=== PATIENT | male | born 1980 | race Caucasian/White ===

== ENCOUNTER 2018-01-09 06:01 | Inpatient (IN) ==
[2018-01-09] MEDS: 0.9 % Sodium Chloride 1,000 ML IVC ONE ×2 (06:53→08:51)
--- NOTE | 2018-01-09 06:55 | Emergency Department Note ---
Disposition Clinical Impression: Proximal limb muscle weakness, Elevated troponin, Hypokalemia Disposition: Admitted As Inpatient Condition: Fair Referrals: Janes Carpio MD [Primary Care Provider] - Forms: ED Satisfaction Letter Neuro HPI - General Chief Complaint: ED Neuro Symptoms/Deficit Stated Complaint: cant walk Time Seen by Provider: 01/09/18 06:29 Source: patient, family Mode of arrival: private vehicle Limitations: no limitations Nursing Notes Reviewed: Yes Vital Signs Reviewed: Yes - History of Present Illness Onset of Symptoms Date: 01/07/18 Symptom Onset Unknown: No Timing confirmed by: spouse Location: left arm, right arm, left leg, right leg History of same: No Severity: moderate Quality: weakness, other (soreness) Symptoms Improving: No Improves with: none Worsens with: none Context: gradual onset On Anticoagulants: No Associated symptoms: Reports: weakness. Denies: confusion, chest pain, cough, diaphoresis, fever/chills, headaches, loss of appetite, malaise, nausea/vomiting, vertigo, seizures, shortness of breath, syncope Treatments Prior to Arrival: other (patient was seen last night at [facility] urgent care. He went there because of leg weakness / pain. He mentioned that he was also having some sinus symptoms - including "green" nasal discharge, and congestion. He was diagnosed with a sinus infection. Rx: Cefdinir and Flexeril. He has had one dose of each.) - Related Data Home Medications: Home Medications Medication Instructions Recorded Confirmed ALPRAZolam [Xanax 0.5 MG Tablet] 0.5 mg PO DAILY 01/09/18 01/09/18 Cholecalciferol (Vitamin D3) 4,000 unit PO DAILY 01/09/18 01/09/18 [Vitamin D] Citalopram Hydrobromide 10 mg PO DAILY 01/09/18 01/09/18 [Citalopram HBr] Testosterone Cypionate 200 mg IM SA 01/09/18 01/09/18 Allergies/Adverse Reactions: Allergies Allergy/AdvReac Type Severity Reaction Status Date / Time tramadol AdvReac Agitated Verified 01/09/18 06:41 All systems ED: reviewed and negative except as stated. Review of Systems: As Per HPI Constitutional: Reports: as per HPI, weakness, night sweats (intermittent). Denies: fever, chills, weight change Eyes: Denies: eye pain, eye discharge, vision change ENT ED: Reports: as per HPI, congestion. Denies: ear pain, throat pain, dysphagia Cardiovascular: Denies: chest pain, palpitations, dyspnea on exertion, orthopnea, edema, syncope Respiratory: Denies: cough, dyspnea, wheezes, hemoptysis, stridor Gastrointestinal: Denies: abdominal pain, nausea, vomiting, diarrhea, constipation Genitourinary: Denies: urgency, dysuria, frequency, hematuria Musculoskeletal: Reports: as per HPI, myalgia (medial proximal thighs and upper proximal arms). Denies: back pain, neck pain, joint swelling, arthralgia Integumentary: Denies: rash, lesions, pruritus Neurological: Reports: as per HPI, weakness. Denies: headache, numbness, par esthesias, confusion, vertigo Endocrine: Reports: fatigue. Denies: heat or cold intolerance, polydipsia, polyuria Hematological/Lymphatic: Denies: easy bleeding, easy bruising, lymphadenopathy Allergic/Immunologic: Denies: facial swelling, urticaria, itchy eyes Past Medical History - Past Medical History Attestation: Yes The following information was validated with the patient. Source: patient, obtained from family Medical history: Reports: no medical history, other (sinusitis - Dx last night. Rx Cefdinir) Surgical history: Reports: non-contributory Psychiatric history: Reports: anxiety, panic disorder - Social History Smoking Status: Never smoker Smokeless Tobacco Status: No Alcohol use: Reports: none Drug use: Reports: none Physical Exam - General Limitations: physical limitation General appearance: alert, in no apparent distress, anxious - Head Head exam: atraumatic, normocephalic, normal inspection - Eye Eye exam: Present: normal appearance, PERRL, EOMI. Absent: scleral icterus, conjunctival injection, nystagmus, miosis, mydriasis, periorbital swelling, periorbital tenderness - ENT ENT exam: normal oropharynx, mucous membranes moist - Neck Neck exam: Present: normal inspection, full ROM, trachea midline. Absent: tenderness, meningismus, lymphadenopathy - Chest Chest inspection: Present: normal inspection. Absent: tenderness - Respiratory Respiratory exam: Present: normal lung sounds bilaterally. Absent: respiratory distress, wheezes, stridor, accessory muscle use, prolonged expiratory phase - Cardiovascular Cardiovascular exam: Present: regular rate, normal rhythm, normal heart sounds - Abdominal Exam Abdominal exam: Present: soft, Non-Tender. Absent: distention, guarding, rebound, rigidity, organomegaly, ascites, mass, pulsatile mass - Extremities Exam Extremities exam: Present: normal inspection, normal capillary refill. Absent: full ROM, tenderness, pedal edema, joint swelling, calf tenderness - Expanded Lower Extremity Exam Hip/Pelvis exam: Present: normal inspection, pelvis stable. Absent: full ROM, tenderness, swelling, external rotation, internal rotation, shortening Upper leg exam: Present: normal inspection. Absent: tenderness, swelling, erythema Knee exam: Present: normal inspection, knee extension intact. Absent: full ROM, tenderness, swelling, erythema Lower leg exam: Present: normal inspection, Achilles tendon intact. Absent: tenderness Ankle exam: Present: normal inspection, full ROM. Absent: tenderness, swelling, erythema Foot/toe exam: Present: normal inspection, full ROM. Absent: tenderness, swelling Neurovascular/Tendon exam: Present: normal capillary refill, normal fine/light touch. Absent: pulse deficit, motor deficit, sensory deficit, tendon deficit, extremity cold to touch, pallor, foot drop, significant pain with passive ROM of distal joint Gait: not tested/not observed - Back Exam Back exam: Present: normal inspection. Absent: tenderness, muscle spasm, pa raspinal tenderness, vertebral tenderness - Neurological Exam Neurological exam: Present: alert, oriented X3, CN II-XII intact. Absent: reflexes normal (normal DTR's left leg and left brachioradialis, decreased right arm, unable to elecit repsponse in right leg.) - Expanded Neurological Exam Patient oriented to: Present: person, place, time Speech: Present: fluid speech Cranial nerves: EOM function (II, III, IV, ): Normal, facial sensation (V): Normal, facial palsy (VII): Normal (negative), gag reflex (IX): Normal, spinal accessory function (XI): Normal, tongue deviation (XII): Normal Cerebellar function: finger to nose: Normal, heel to armas: Normal Motor strength - LUE: 3/5 Motor strength - RUE: 3/5 Motor strength - LLE: 2/5 Motor strength - RLE: 2/5 Upper motor neuron exam: lorenzo neglect: Absent bilaterally, pronator drift: Absent bilaterally, Babinski sign: Absent bilaterally, sensory extinction: Absent bilaterally Sensory exam upper extremity: light touch: Normal, pin prick: Normal, temperature: Normal Sensory exam lower extremity: light touch: Normal, pin prick: Normal, temperature: Normal DTR: bicep (L): 1+, bicep (R): 1+, brachioradialis (L): 1+, brachioradialis (R): 2+, tricep (L): 2+, tricep (R): 2+, patellar (L): 3+, patellar (R): 0, Achilles tendon (L): 1+, Achilles tendon (R): 0 Coma Scale Eye Opening: Spontaneous Coma Scale Motor Response: Obeys Commands Coma Scale Verbal Response: Oriented Coma Scale Total: 15 - Psychiatric Psychiatric exam: Present: normal affect, anxious - Skin Skin exam: Present: warm, dry, intact, normal color Course Course Narrative: Otherwise healthy 37-year-old male presents from home with his for evaluation of bilateral proximal leg weakness and pain since and bilateral proximal upper extremity weakness since this morning. He describes pain with range of motion in the medial aspect of the thighs bilaterally, and mild pain with bilateral shoulder movements / muscle use. He has had no fever, chills, nausea, vomiting, headache, dizziness, neck pain or stiffness, back pain, bowel or bladder dysfunction, saddle anesthesia, urinary retention. No trouble breathing shortness breath, dyspnea on exertion, abdominal pain, rashes. He denies recent travel. He did get a flu shot on December 29 during a routine primary care visit. He had blood work done during that visit as well and was told that everything was normal. He denies any new medications aside from those that he received at urgent care last night and the flu shot. Patient interviewed and examined. He has moderate weakness in bilateral quadriceps, hamstrings, and adductors. He has mild weakness in bilateral biceps, triceps, deltoids. No weakness in facial / occular, abdominal, back or neck muscles, no respiratory distress. DTRs are asymmetric; right lower - unable to elicit, left lower normal, bilateral upper difficult to elicit, left present, right, decreased. Labs and EKG ordered. Case discussed with Dr. Phelps. He has had face to face time with the patient and agrees with the assessment and plan. - Reevaluation(s) Reevaluation #1: Patient resting comfortably with no complaints. He seems much less anxious at this time. Time: 09:09 Reevaluation #2: Nurse reports that patient is now able to raise his legs up off of the bed >6" with minimal difficulty. This is a significant improvement. Time: 11:25 - Consultations Consultation #1: Case was discussed with Dr. Schmidt, the hospitalist. She has accepted the patient for admission. Time: 10:30 Vital Signs Temperature 98.1 F 01/09/18 06:04 Pulse Rate 91 01/09/18 06:04 Respiratory Rate 20 01/09/18 06:04 Blood Pressure 152/94 01/09/18 06:04 O2 Sat by Pulse Oximetry 100 01/09/18 06:04 Temperature 98.1 F 01/09/18 06:04 Pulse Rate 74 01/09/18 09:33 Respiratory Rate 18 01/09/18 09:33 Blood Pressure 149/93 01/09/18 09:33 O2 Sat by Pulse Oximetry 98 01/09/18 09:33 Oxygen Delivery Oxygen Delivery Room Air Neuro Symptoms/Deficit - MDM Narrative Medical decision making narrative: Otherwise healthy patient with proximal muscle weakness in setting of recent flu shot, upper respiratory infection and recent 48-hour assignment at work that involved significant sleep deprivation and lack of hydration / nutrition, presents from home with . Weakness and pain in proximal medial and anterior thighs since AM. Weakness and pain in proximal shoulders / upper arms since this AM. Leg weakness much worse this AM. Patient "unable to walk normally". No fever or respiratory difficulties. No back or neck pain or injury. No chest pain, dizziness, vertigo, syncope. Initial concern was for spinal compression, epidural abscess, cauda equina syndrome however patient has no Hx of IVDA, recent LP, procedure or injection. No urinary complaints and most importantly, no back pain. Concerned for GBS, but patient has no diaphragm involvement despite upper extremity weakness and he has normal LLE reflexes, so it would be unlikely. Myositis is in the differential as well. Labs pending. Patient has very low K+, mild elevation of troponin, normal CK, normal urine, BU N/CR, Mg, and negative drug screen. Phos and calcium pending. EKG shows some non-specific ST changes. No ST elevation. Patient receiving IV fluids and potassium. Will flag for admission. He will need a neuro consult and troponin repeat as well as continued K replacement, additional testing and observation. Case discussed with the hospitalist. She has accepted the patient. - Medical Records Medical records reviewed: Yes I reviewed the patient's medical records. - Lab Data Lab results reviewed: Yes I reviewed the patient's lab results. Lab results narrative: Laboratory Last Values WBC 7.4 K/mcL (4.3-11.1) 01/09/18 06:56 RBC 5.65 M/mcL (4.19-5.50) H 01/09/18 06:56 Hgb 17.6 g/dL (12.9-16.9) H 01/09/18 06:56 Hct 48.8 % (37.5-50.1) 01/09/18 06:56 MCV 86.4 fL (83.0-100.0) 01/09/18 06:56 MCH 31.2 pg (28.0-33.3) 01/09/18 06:56 MCHC 36.1 g/dL (31.6-35.5) H 01/09/18 06:56 RDW 12.1 % (11.5-14.5) 01/09/18 06:56 Plt Count 280 K/mcL (140-400) 01/09/18 06:56 MPV 9.7 fL (9.4-12.4) 01/09/18 06:56 ESR 20 mm/hr (0-10) H 01/09/18 06:56 Sodium 138 mEq/L (136-145) 01/09/18 06:56 Potassium 2.4 mEq/L (3.5-5.1) L* 01/09/18 06:56 Chloride 105 mEq/L (98-107) 01/09/18 06:56 Carbon Dioxide 24 mEq/L (23-29) 01/09/18 06:56 BUN 9 mg/dL (6-20) 01/09/18 06:56 Creatinine 0.81 mg/dL (0.70-1.30) 01/09/18 06:56 Est GFR ( Amer) > 60 (> 60) 01/09/18 06:56 Est GFR (Non-Af Amer) > 60 (> 60) 01/09/18 06:56 BUN/Creatinine Ratio 11 (6-26) 01/09/18 06:56 Glucose 129 mg/dL (70-105) H 01/09/18 06:56 Calculated Osmolality 286 (280-300) 01/09/18 06:56 Calcium 10.0 mg/dL (8.6-10.3) 01/09/18 06:56 Magnesium 2.0 mg/dL (1.6-2.6) 01/09/18 06:56 Total Bilirubin 0.6 mg/dL (0.3-1.0) 01/09/18 06:56 AST 15 Units/L (13-39) 01/09/18 06:56 ALT 18 Units/L (7-52) 01/09/18 06:56 Alkaline Phosphatase 66 Units/L (34-104) 01/09/18 06:56 Creatine Kinase 89 Units/L (30-223) 01/09/18 06:56 Troponin I 0.06 ng/mL (< 0.04) H* 01/09/18 06:56 Serum Total Protein 7.4 g/dL (6.4-8.9) 01/09/18 06:56 Albumin 4.5 g/dL (3.5-5.7) 01/09/18 06:56 Globulin 2.9 g/dL (2.4-3.5) 01/09/18 06:56 Albumin/Globulin Ratio 1.6 (1.1-2.2) 01/09/18 06:56 Urine Color Yellow (Yellow) 01/09/18 08:10 Urine Clarity Clear (Clear) 01/09/18 08:10 Urine pH 7.0 pH Units (5.0-8.0) 01/09/18 08:10 Ur Specific [place] < 1.005 (1.010-1.025) L 01/09/18 08:10 Urine Protein Negative mg/dL (Neg-Trace) 01/09/18 08:10 Urine Glucose (UA) Normal mg/dL (Normal) 01/09/18 08:10 Urine Ketones Negative mg/dL (Negative) 01/09/18 08:10 Urine Blood Negative (Negative) 01/09/18 08:10 Urine Nitrite Negative (Negative) 01/09/18 08:10 Urine Bilirubin Negative (Negative) 01/09/18 08:10 Urine Urobilinogen Normal mg/dL (Normal) 01/09/18 08:10 Ur Leukocyte Esterase Negative (Negative) 01/09/18 08:10 Ur Culture Indicated? NO (NO) 01/09/18 08:10 Urine Opiates Screen Negative ng/mL (Dhmuky=207) 01/09/18 08:10 Ur Barbiturates Screen Negative ng/mL (Btunho=822) 01/09/18 08:10 Ur Phencyclidine Scrn Negative ng/mL (Cutoff=25) 01/09/18 08:10 Ur Amphetamines Screen Negative ng/mL (Nosdtm=1529) 01/09/18 08:10 U Benzodiazepines Scrn Negative ng/mL (Auyimh=850) 01/09/18 08:10 Urine Cocaine Screen Negative ng/mL (Cutoff= 300) 01/09/18 08:10 U Marijuana (THC) Screen Negative ng/mL (Cutoff = 50) 01/09/18 08:10 Ur Drug Screen Interp See Below 01/09/18 08:10 Result diagrams: 01/09/18 06:56 01/09/18 06:56 Lab Results 01/09/18 01/09/18 01/09/18 Range/Units 06:56 06:56 06:56 WBC 7.4 (4.3-11.1) K/mcL RBC 5.65 H (4.19-5.50) M/mcL Hgb 17.6 H (12.9-16.9) g/dL Hct 48.8 (37.5-50.1) % MCV 86.4 (83.0-100.0) fL MCH 31.2 (28.0-33.3) pg MCHC 36.1 H (31.6-35.5) g/dL RDW 12.1 (11.5-14.5) % Plt Count 280 (140-400) K/mcL MPV 9.7 (9.4-12.4) fL ESR 20 H (0-10) mm/hr Sodium 138 (136-145) mEq/L Potassium 2.4 L* (3.5-5.1) mEq/L Chloride 105 (98-107) mEq/L Carbon Dioxide 24 (23-29) mEq/L BUN 9 (6-20) mg/dL Creatinine 0.81 (0.70-1.30) mg/dL Est GFR ( Amer) > 60 (> 60) Est GFR (Non-Af Amer) > 60 (> 60) BUN/Creatinine Ratio 11 (6-26) Glucose 129 H (70-105) mg/dL Calculated Osmolality 286 (280-300) Calcium 10.0 (8.6-10.3) mg/dL Total Bilirubin 0.6 (0.3-1.0) mg/dL AST 15 (13-39) Units/L ALT 18 (7-52) Units/L Alkaline Phosphatase 66 (34-104) Units/L Creatine Kinase 89 (30-223) Units/L Troponin I 0.06 H* (< 0.04) ng/mL Serum Total Protein 7.4 (6.4-8.9) g/dL Albumin 4.5 (3.5-5.7) g/dL Globulin 2.9 (2.4-3.5) g/dL Albumin/Globulin Ratio 1.6 (1.1-2.2) Urine Color (Yellow) Urine Clarity (Clear) Urine pH (5.0-8.0) pH Units Ur Specific [place] (1.010-1.025) Urine Protein (Neg-Trace) mg/dL Urine Glucose (UA) (Normal) mg/dL Urine Ketones (Negative) mg/dL Urine Blood (Negative) Urine Nitrite (Negative) Urine Bilirubin (Negative) Urine Urobilinogen (Normal) mg/dL Ur Leukocyte Esterase (Negative) Ur Culture Indicated? (NO) Urine Opiates Screen (Ihkbto=066) ng/mL Ur Barbiturates Screen (Syocfh=174) ng/mL Ur Phencyclidine Scrn (Cutoff=25) ng/mL Ur Amphetamines Screen (Wkxjco=3664) ng/mL U Benzodiazepines Scrn (Hqyspo=932) ng/mL Urine Cocaine Screen (Cutoff= 300) ng/mL U Marijuana (THC) Screen (Cutoff = 50) ng/mL Ur Drug Screen Interp 01/09/18 01/09/18 Range/Units 08:10 08:10 WBC (4.3-11.1) K/mcL RBC (4.19-5.50) M/mcL Hgb (12.9-16.9) g/dL Hct (37.5-50.1) % MCV (83.0-100.0) fL MCH (28.0-33.3) pg MCHC (31.6-35.5) g/dL RDW (11.5-14.5) % Plt Count (140-400) K/mcL MPV (9.4-12.4) fL ESR (0-10) mm/hr Sodium (136-145) mEq/L Potassium (3.5-5.1) mEq/L Chloride (98-107) mEq/L Carbon Dioxide (23-29) mEq/L BUN (6-20) mg/dL Creatinine (0.70-1.30) mg/dL Est GFR ( Amer) (> 60) Est GFR (Non-Af Amer) (> 60) BUN/Creatinine Ratio (6-26) Glucose (70-105) mg/dL Calculated Osmolality (280-300) Calcium (8.6-10.3) mg/dL Total Bilirubin (0.3-1.0) mg/dL AST (13-39) Units/L ALT (7-52) Units/L Alkaline Phosphatase (34-104) Units/L Creatine Kinase (30-223) Units/L Troponin I (< 0.04) ng/mL Serum Total Protein (6.4-8.9) g/dL Albumin (3.5-5.7) g/dL Globulin (2.4-3.5) g/dL Albumin/Globulin Ratio (1.1-2.2) Urine Color Yellow (Yellow) Urine Clarity Clear (Clear) Urine pH 7.0 (5.0-8.0) pH Units Ur Specific [place] < 1.005 L (1.010-1.025) Urine Protein Negative (Neg-Trace) mg/dL Urine Glucose (UA) Normal (Normal) mg/dL Urine Ketones Negative (Negative) mg/dL Urine Blood Negative (Negative) Urine Nitrite Negative (Negative) Urine Bilirubin Negative (Negative) Urine Urobilinogen Normal (Normal) mg/dL Ur Leukocyte Esterase Negative (Negative) Ur Culture Indicated? NO (NO) Urine Opiates Screen Negative (Rbomsb=419) ng/mL Ur Barbiturates Screen Negative (Nmabwt=367) ng/mL Ur Phencyclidine Scrn Negative (Cutoff=25) ng/mL Ur Amphetamines Screen Negative (Dthrvv=0280) ng/mL U Benzodiazepines Scrn Negative (Elxnmw=381) ng/mL Urine Cocaine Screen Negative (Cutoff= 300) ng/mL U Marijuana (THC) Screen Negative (Cutoff = 50) ng/mL Ur Drug Screen Interp See Below - Radiology Data Radiology results reviewed: Yes I reviewed the patient's radiology results. - EKG Data EKG attestation: Yes I reviewed and interpreted this EKG. EKG shows normal: sinus rhythm Rate: normal Rhythm: NSR [place]/QRS: IVCD P Waves: LAE When compared to previous EKG there are: previous EKG unavailable Interpretation: normal EKG TPA Checklist - LKW: 3-4.5 hrs Add. Warnings/Precautions Patient/family understanding: The patient/family members have been counseled and understood the risk, benefit, and alternatives of treatment.
--- NOTE | 2018-01-09 06:55 | Emergency Department Note ---
Disposition Clinical Impression: Proximal limb muscle weakness, Elevated troponin, Hypokalemia Disposition: Admitted As Inpatient Condition: Fair General Adult HPI - General Chief complaint: ED Neuro Symptoms/Deficit Stated complaint: cant walk Time Seen by Provider: 01/09/18 06:29 Source: patient, family Limitations: physical limitation - History of Present Illness Pain Scale: 0 - Related Data Home Medications Medication Instructions Recorded Confirmed ALPRAZolam [Xanax 0.5 MG Tablet] 0.5 mg PO DAILY 01/09/18 01/09/18 Cholecalciferol (Vitamin D3) 4,000 unit PO DAILY 01/09/18 01/09/18 [Vitamin D] Citalopram Hydrobromide 10 mg PO DAILY 01/09/18 01/09/18 [Citalopram HBr] Testosterone Cypionate 200 mg IM SA 01/09/18 01/09/18 Allergies Allergy/AdvReac Type Severity Reaction Status Date / Time tramadol AdvReac Agitated Verified 01/09/18 06:41 Past Medical History - Past Medical History Medical history: Reports: no medical history Psychiatric history: Reports: anxiety, panic disorder - Social History Smoking Status: Never smoker Smokeless Tobacco Status: No Alcohol use: Reports: none Drug use: Reports: none Physical Exam - General Limitations: physical limitation General appearance: alert Course Vital Signs Temperature 98.1 F 01/09/18 06:04 Pulse Rate 91 01/09/18 06:04 Respiratory Rate 20 01/09/18 06:04 Blood Pressure 152/94 01/09/18 06:04 O2 Sat by Pulse Oximetry 100 01/09/18 06:04 Temperature 98.1 F 01/09/18 06:04 Pulse Rate 85 01/09/18 10:51 Respiratory Rate 18 01/09/18 10:51 Blood Pressure 175/101 01/09/18 10:51 O2 Sat by Pulse Oximetry 98 01/09/18 10:51 Oxygen Delivery Oxygen Delivery Room Air Medical Decision Making - Lab Data Result diagrams: 01/09/18 06:56 01/09/18 06:56 Lab Results 01/09/18 01/09/18 01/09/18 Range/Units 06:56 06:56 06:56 WBC 7.4 (4.3-11.1) K/mcL RBC 5.65 H (4.19-5.50) M/mcL Hgb 17.6 H (12.9-16.9) g/dL Hct 48.8 (37.5-50.1) % MCV 86.4 (83.0-100.0) fL MCH 31.2 (28.0-33.3) pg MCHC 36.1 H (31.6-35.5) g/dL RDW 12.1 (11.5-14.5) % Plt Count 280 (140-400) K/mcL MPV 9.7 (9.4-12.4) fL ESR 20 H (0-10) mm/hr Sodium 138 (136-145) mEq/L Potassium 2.4 L* (3.5-5.1) mEq/L Chloride 105 (98-107) mEq/L Carbon Dioxide 24 (23-29) mEq/L BUN 9 (6-20) mg/dL Creatinine 0.81 (0.70-1.30) mg/dL Est GFR ( Amer) > 60 (> 60) Est GFR (Non-Af Amer) > 60 (> 60) BUN/Creatinine Ratio 11 (6-26) Glucose 129 H (70-105) mg/dL Calculated Osmolality 286 (280-300) Calcium 10.0 (8.6-10.3) mg/dL Magnesium 2.0 (1.6-2.6) mg/dL Total Bilirubin 0.6 (0.3-1.0) mg/dL AST 15 (13-39) Units/L ALT 18 (7-52) Units/L Alkaline Phosphatase 66 (34-104) Units/L Creatine Kinase 89 (30-223) Units/L Troponin I 0.06 H* (< 0.04) ng/mL Serum Total Protein 7.4 (6.4-8.9) g/dL Albumin 4.5 (3.5-5.7) g/dL Globulin 2.9 (2.4-3.5) g/dL Albumin/Globulin Ratio 1.6 (1.1-2.2) Urine Color (Yellow) Urine Clarity (Clear) Urine pH (5.0-8.0) pH Units Ur Specific Brock (1.010-1.025) Urine Protein (Neg-Trace) mg/dL Urine Glucose (UA) (Normal) mg/dL Urine Ketones (Negative) mg/dL Urine Blood (Negative) Urine Nitrite (Negative) Urine Bilirubin (Negative) Urine Urobilinogen (Normal) mg/dL Ur Leukocyte Esterase (Negative) Ur Culture Indicated? (NO) Urine Opiates Screen (Pwmlqx=014) ng/mL Ur Barbiturates Screen (Hzwrhv=349) ng/mL Ur Phencyclidine Scrn (Cutoff=25) ng/mL Ur Amphetamines Screen (Pnflkg=9495) ng/mL U Benzodiazepines Scrn (Ehojgd=137) ng/mL Urine Cocaine Screen (Cutoff= 300) ng/mL U Marijuana (THC) Screen (Cutoff = 50) ng/mL Ur Drug Screen Interp 01/09/18 01/09/18 Range/Units 08:10 08:10 WBC (4.3-11.1) K/mcL RBC (4.19-5.50) M/mcL Hgb (12.9-16.9) g/dL Hct (37.5-50.1) % MCV (83.0-100.0) fL MCH (28.0-33.3) pg MCHC (31.6-35.5) g/dL RDW (11.5-14.5) % Plt Count (140-400) K/mcL MPV (9.4-12.4) fL ESR (0-10) mm/hr Sodium (136-145) mEq/L Potassium (3.5-5.1) mEq/L Chloride (98-107) mEq/L Carbon Dioxide (23-29) mEq/L BUN (6-20) mg/dL Creatinine (0.70-1.30) mg/dL Est GFR ( Amer) (> 60) Est GFR (Non-Af Amer) (> 60) BUN/Creatinine Ratio (6-26) Glucose (70-105) mg/dL Calculated Osmolality (280-300) Calcium (8.6-10.3) mg/dL Magnesium (1.6-2.6) mg/dL Total Bilirubin (0.3-1.0) mg/dL AST (13-39) Units/L ALT (7-52) Units/L Alkaline Phosphatase (34-104) Units/L Creatine Kinase (30-223) Units/L Troponin I (< 0.04) ng/mL Serum Total Protein (6.4-8.9) g/dL Albumin (3.5-5.7) g/dL Globulin (2.4-3.5) g/dL Albumin/Globulin Ratio (1.1-2.2) Urine Color Yellow (Yellow) Urine Clarity Clear (Clear) Urine pH 7.0 (5.0-8.0) pH Units Ur Specific Brock < 1.005 L (1.010-1.025) Urine Protein Negative (Neg-Trace) mg/dL Urine Glucose (UA) Normal (Normal) mg/dL Urine Ketones Negative (Negative) mg/dL Urine Blood Negative (Negative) Urine Nitrite Negative (Negative) Urine Bilirubin Negative (Negative) Urine Urobilinogen Normal (Normal) mg/dL Ur Leukocyte Esterase Negative (Negative) Ur Culture Indicated? NO (NO) Urine Opiates Screen Negative (Wmtusl=462) ng/mL Ur Barbiturates Screen Negative (Nkxbel=125) ng/mL Ur Phencyclidine Scrn Negative (Cutoff=25) ng/mL Ur Amphetamines Screen Negative (Zmwwzf=3868) ng/mL U Benzodiazepines Scrn Negative (Cwhqnj=272) ng/mL Urine Cocaine Screen Negative (Cutoff= 300) ng/mL U Marijuana (THC) Screen Negative (Cutoff = 50) ng/mL Ur Drug Screen Interp See Below Critical Care Time Critical Care Time: Yes Total Critical Care Time: 30 Attestation: The high probability of a clinically significant, sudden or life threatening deterioration of the [] system(s) required my full and direct attention, intervention and personal management. The aggregate critical care time was [] minutes. This time is in addition to time spent performing reported procedures but includes the following: [] Data Review and interpretation [] Patient assessment and monitoring of vital signs [] Documentation [] Medication orders and management Attestation Statement - Attestation Attestation: For this encounter, I have reviewed the SHANK FAKER or PA documentation, treatment plan, and medical decision making; and I have had face to face time with this patient. Face to face time provided Patient seen and evaluated. He states he developed a traumatic pain to his bilateral medial thighs which is now causing bilateral lower extremity leg weakness and pain with flexion at the hips. He also describes upper extremity weakness. He denies numbness tingling or bowel or bladder dysfunction. 11:28: Etiology of patient's symptoms and completely certain but could be related to his hypokalemia which will be supplemented. A diagnostic consideration also includes Guillain-[place] although his symptoms are not completely consistent with that. The patient may require a neurology consultation upon admission
[2018-01-09 07:33] LABS: Hematocrit 48.8 % (37.5-50.1); Hemoglobin 17.6 g/dL (12.9-16.9); Mean Corpuscular HGB Conc 36.1 g/dL (31.6-35.5); Mean Corpuscular Hemoglobin 31.2 pg (28.0-33.3); Mean Corpuscular Volume 86.4 fL (83.0-100.0); Mean Platelet Volume 9.7 fL (9.4-12.4); Platelet Count 280 K/mcL (140-400); Red Blood Count 5.65 M/mcL (4.19-5.50); Red Cell Distribution Width 12.1 % (11.5-14.5)
[2018-01-09 07:56] LABS: Troponin I 0.06 ng/mL (< 0.04)
[2018-01-09 08:05] LABS: Alanine Aminotransferase 18 Units/L (7-52); Albumin 4.5 g/dL (3.5-5.7); Albumin/Globulin Ratio 1.6 (1.1-2.2); Alkaline Phosphatase 66 Units/L (34-104); Aspartate Amino Transferase 15 Units/L (13-39); BUN/Creatinine Ratio 11 (6-26); Bilirubin,Total 0.6 mg/dL (0.3-1.0); Blood Urea Nitrogen 9 mg/dL (6-20); Carbon Dioxide 24 mEq/L (23-29); Chloride 105 mEq/L (98-107); Creatine Kinase 89 Units/L (30-223); Globulin 2.9 g/dL (2.4-3.5); Glucose 129 mg/dL (70-105); Osmolality,Calculated 286 (280-300); Potassium 2.4 mEq/L (3.5-5.1); Sodium 138 mEq/L (136-145); Total Protein 7.4 g/dL (6.4-8.9); eGFR For Non-African Americans > 60 (> 60)
[2018-01-09 08:23] LABS: Bilirubin,Urine Negative (Negative); Blood,Urine Negative (Negative); Clarity,Urine Clear (Clear); Color,Urine Yellow (Yellow); Glucose,Urine (UA) Normal (Normal); Ketones,Urine Negative (Negative); Leukocyte Esterase,Urine Negative (Negative); Nitrite,Urine Negative (Negative); Protein,Urine Negative (Neg-Trace); Specific Gravity,Urine < 1.005 (1.010-1.025); Urobilinogen,Urine Normal (Normal)
[2018-01-09 08:25] LABS: Amphetamine Screen,Urine Negative ng/mL (Cutoff=1000); Barbiturate Screen,Urine Negative ng/mL (Cutoff=200)
[2018-01-09 08:26] LABS: Benzodiazepines Screen,Urine Negative ng/mL (Cutoff=300); Cannabinoid Screen,Urine Negative ng/mL (Cutoff = 50); Cocaine Screen,Urine Negative ng/mL (Cutoff= 300); Opiate Screen,Urine Negative ng/mL (Cutoff=300); Phencyclidine Screen,Urine Negative ng/mL (Cutoff=25)
[2018-01-09] MEDS ORDERED: 0.9 % Sodium Chloride 1,000 ML ONE ×2 (08:42→09:57)
[2018-01-09] MEDS ORDERED: Naloxone 0.4 MG/ML INJ IVP PRN (10:20)
[2018-01-09] MEDS ORDERED: Aspirin 325 MG TABLET PO ONE (10:26)
[2018-01-09] MEDS ORDERED: 0.9 % Sodium Chloride 1,000 ML IVC ONE (10:32)
--- NOTE | 2018-01-09 10:46 | Internal Med History&Physical ---
Date of Encounter: 01/09/18 Time of Encounter: 12:13 Internal Medicine - H&P: HPI Chief complaint: Muscle weakness Admitted From: Home Plans for Post Hospital Care: Home History of present illness: Mr. Porras is a 37 year old male with no medical history who presented to the ER with a 2 days history of generalized muscle weakness and fatigue. The patient reports having seen his primary care physician and recently started on testosterone shots, as well as receiving his flu and hepatitis A and B vaccine. He denies nausea or vomiting, he denies diarrhea, he denies sudden onset palpitations or headaches, he denies having anxiety or panic attacks, he denies known history of hypertension. He denies chest pain or shortness of breath, he denies leg swelling, cough tenderness, abdominal pain, difficulty breathing. Presented to an urgent care facility yesterday 01/08 and was diagnosed with sinus infection and given antibiotics. However, he woke up this morning and was unable to move, he felt as if he was paralyzed this is presentation to this facility. He denies any family history of endocrine abnormalities or cardiac abnormalities. 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 He is a nonsmoker. Workup in the ER revealed polycythemia, hypokalemia, hyperglycemia, potassium of 2.4 with normal magnesium, 7 is within normal limit, troponin was elevated at 0.06, liver function tests was unremarkable, troponin was elevated at 0.06, ESR was elevated at 20, creatinine kinase was within normal limit. Urine analysis showed dilute urine, and urine toxicology was unremarkable His most recent blood work from his primary care physician on 12/29 showed a normal potassium of 3.9. EKG was unremarkable for any ST segment changes, sinus rhythm and normal intervals. He will be placed on observation for management and work up of severe hypokalemia Past Med Surg Social Fam HX - Past Medical History Medical history: no medical history, other (sinusitis - Dx last night. Rx Cefdinir) Additional medical history: low testosterone Psychiatric history: anxiety, panic disorder - Past Surgical History Surgical History: non-contributory - Social History Smoking Status: Never smoker Smokeless Tobacco Status: No Alcohol use: none Drug use: none Internal Medicine - H&P: Meds ALPRAZolam [Xanax 0.5 MG Tablet] 0.5 mg PO DAILY 01/09/18 [History] Cholecalciferol (Vitamin D3) [Vitamin D] 4,000 unit PO DAILY 01/09/18 [History] Citalopram Hydrobromide [Citalopram HBr] 10 mg PO DAILY 01/09/18 [History] Testosterone Cypionate 200 mg IM SA 01/09/18 [History] Allergy/AdvReac Type Severity Reaction Status Date / Time tramadol AdvReac Agitated Verified 01/09/18 06:41 All Systems PM: A 10-system review of systems was performed and is negative for pertinent findings except as documented above in the HPI. - Constitutional Constitutional: as per HPI - EENT Eyes: as per HPI Ears: as per HPI Nose, mouth and throat: as per HPI - Cardiovascular Cardiovascular ROS IM: as per HPI - Respiratory Respiratory: as per HPI - Gastrointestinal Gastrointestinal: as per HPI - Musculoskeletal Musculoskeletal ROS IM: as per HPI - Integumentary Integumentary IM: as per HPI - Neurological Neurological ROS: as per HPI - Hematologic/Lymphatic Hematologic/Lymphatic: as per HPI - Constitutional Vitals: Temp Pulse Resp BP Pulse Ox 98.1 F 74 18 149/93 98 01/09/18 06:04 01/09/18 09:33 01/09/18 09:33 01/09/18 09:33 01/09/18 09:33 General appearance: Present: A&O X 3, pleasant, no acute distress Exam: see below - Head Head exam: Present: atraumatic, normocephalic - Eye Eye exam: Present: PERRL, conjuntiva pink, sclera anicteric Pupils: Present: PERRL - Neck Neck exam general surgery: Present: supple, trachea midline. Absent: lymphadenopathy - Respiratory Respiratory exam: Present: CTAB. Absent: accessory muscle use, rales, rhonchi, wheezes - Cardiovascular Cardiovascular exam: Present: RRR, +S1, +S2. Absent: diastolic murmur, gallop, rubs, systolic murmur - GI/Abdominal GI/Abdominal exam: Present: normal bowel sounds, soft, no peritoneal signs. Absent: distended, tenderness - Extremities Exam Extremities exam: Present: warm, radial pulses palpable and symmetrical. Absent: calf tenderness, cyanotic, pedal edema - Neurological Exam Neurological exam: Present: CN II-XII intact, oriented X3, no focal deficits. Absent: pronater drift, facial droop, speech deficit - Skin Skin exam: Present: dry, intact Internal Med - H&P Results - Labs CBC & Chem 7: 01/09/18 06:56 01/09/18 06:56 Labs: Short CBC 01/09/18 Range/Units 06:56 WBC 7.4 (4.3-11.1) K/mcL Hgb 17.6 H (12.9-16.9) g/dL Hct 48.8 (37.5-50.1) % Plt Count 280 (140-400) K/mcL BMP 01/09/18 06:56 Sodium 138 Potassium 2.4 L* Chloride 105 Carbon Dioxide 24 BUN 9 Creatinine 0.81 Glucose 129 H Calcium 10.0 Cardiac Enzymes 01/09/18 Range/Units 06:56 Troponin I 0.06 H* (< 0.04) ng/mL Liver Function 01/09/18 Range/Units 06:56 Total Bilirubin 0.6 (0.3-1.0) mg/dL AST 15 (13-39) Units/L ALT 18 (7-52) Units/L Alkaline Phosphatase 66 (34-104) Units/L Albumin 4.5 (3.5-5.7) g/dL Urine 01/09/18 Range/Units 08:10 Urine Color Yellow (Yellow) Urine Clarity Clear (Clear) Urine pH 7.0 (5.0-8.0) pH Units Ur Specific [place] < 1.005 L (1.010-1.025) Urine Protein Negative (Neg-Trace) mg/dL Urine Glucose (UA) Normal (Normal) mg/dL - Assessment and plan (1) Hypokalemia Current Visit: Yes Status: Acute Assessment and plan: Patient presented with sudden muscle weakness, started 2 days ago, K 2.9 on presentation, was 3.9 12/29/17 with PCP He denies diuretic use, no vomiting or diarrhea, no licorice ingestion, no palpitations, headaches, anxiety, sudden sweating or flushing Patient recently started taking testosterone injections, he denies any other anabolic steroid use Chart review also shows elevated blood pressures he has no metabolic acidosis or alkalosis He has received 80 meq from ER-40meq IV and 40meq po Rpt K p.m today Monitor Chem Obtain spot urine potassium and spot urine creatinine Obtain a.m renin activity and aldosterone levels Etiology of hypokalemia is unknown at this time Keep on telemetry (2) Proximal limb muscle weakness Current Visit: Yes Status: Acute Assessment and plan: Likely due to hypokalemia Patient has shown remarkable improvement since receiving potassium replacements Continue to monitor (3) Elevated troponin Current Visit: Yes Status: Acute Assessment and plan: Likely due to hypokalemia CK is WNL Cycle trops Follow ECHO report Patient has no chest pain and EKG is unremarkable (4) Polycythemia Current Visit: Yes Status: Acute Assessment and plan: likely due to testosterone, continue to monitor (5) Elevated blood pressure reading Current Visit: Yes Status: Acute Assessment and plan: Not a known hypertensive, continue to monitor (6) Hypophosphatemia Current Visit: Yes Status: Acute Assessment and plan: Critical Phos level <1 Replace IV and PO Rpt with pm chem - Time Spent With Patient Total time spent is greater than 50% in coordination of care (as documented) at patient's floor/unit and/or counseling patient:
[2018-01-09 12:17] LABS: C-Reactive Protein 14 mg/L (Less than 10); Phosphorous < 1.0 mg/dL (2.7-4.5)
[2018-01-09] MEDS: Cholecalciferol (D-3) 1,000 UNIT TABLET PO SCH (13:20)
[2018-01-09] MEDS: ALPRAZolam 0.5 MG TABLET PO SCH (13:21)
[2018-01-09 16:14] LABS: Chloride,Urine 25 mEq/L; Creatinine,Urine 40 mg/dL; Potassium,Urine 5.1 mEq/L
[2018-01-10 00:49] LABS: BUN/Creatinine Ratio 8 (6-26); Blood Urea Nitrogen 6 mg/dL (6-20); Calcium 8.6 mg/dL (8.6-10.3); Carbon Dioxide 25 mEq/L (23-29); Chloride 110 mEq/L (98-107); Glucose 163 mg/dL (70-105); Osmolality,Calculated 295 (280-300); Sodium 142 mEq/L (136-145); eGFR For Non-African Americans > 60 (> 60)
[2018-01-10] MEDS ORDERED: *HR* Enoxaparin 40 MG/0.4 ML SYRINGE SQ SCH (06:00)
[2018-01-10 07:49] VITALS: BP 145/81
--- NOTE | 2018-01-10 07:54 | Internal Med Progress Note ---
Hospitalist Progress Note - Encounter Date of Encounter: 01/10/18 Time of Encounter: 07:53 - Exam Vitals: Temp Pulse Resp BP Pulse Ox 97.8 F 73 17 145/81 96 01/10/18 07:44 01/10/18 07:44 01/10/18 07:44 01/10/18 07:44 01/10/18 07:44 - Time Spent with Patient Total time spent is greater than 50% in coordination of care (as documented) at patient's floor/unit and/or counseling patient: Internal Medicine: Result - Labs CBC & Chem 7: 01/09/18 06:56 01/10/18 00:17 Labs: BMP 01/09/18 01/09/18 01/10/18 06:56 18:18 00:17 Sodium 138 142 Potassium 2.4 L* 3.7 D 3.0 L Chloride 105 110 H Carbon Dioxide 24 25 BUN 9 6 Creatinine 0.81 0.77 Glucose 129 H 163 H Calcium 10.0 8.6 Cardiac Enzymes 01/09/18 01/09/18 01/09/18 Range/Units 06:56 12:43 18:19 Troponin I 0.06 H* 0.07 H* 0.05 H* (< 0.04) ng/mL 01/10/18 Range/Units 00:17 Troponin I 0.04 H* (< 0.04) ng/mL Liver Function 01/09/18 Range/Units 06:56 Total Bilirubin 0.6 (0.3-1.0) mg/dL AST 15 (13-39) Units/L ALT 18 (7-52) Units/L Alkaline Phosphatase 66 (34-104) Units/L Albumin 4.5 (3.5-5.7) g/dL Urine 01/09/18 Range/Units 08:10 Urine Color Yellow (Yellow) Urine Clarity Clear (Clear) Urine pH 7.0 (5.0-8.0) pH Units Ur Specific [place] < 1.005 L (1.010-1.025) Urine Protein Negative (Neg-Trace) mg/dL Urine Glucose (UA) Normal (Normal) mg/dL - Impressions Impressions Echocardiogram 01/09/18 10:43 Impressions: Findings: ADDENDUM: 01/09/18 1617 Impressions: LVEF 65%. Normal LV chamber size, wall thickness and function. Normal right ventricular structure and function. No significant valvular dysfunction. Unable to estimate RVSP due to lack of TR jet. Left Ventricular Wall Motion: Rest Echo Findings All wall segments showed normal motion. Findings: Study Quality * Technically adequate exam. ECG Findings * Normal sinus rhythm. Left Ventricle * LVEF 65%. * Normal LV chamber size, wall thickness and function. * Normal left ventricular diastolic function. Right Ventricle * Normal right ventricular structure and function. Left Atrium * Normal left atrial size. Right Atrium * Normal right atrial size. Interatrial Septum * Interatrial septum not well evaluated. Aortic Valve * Trileaflet aortic valve. * No aortic stenosis. * No aortic regurgitation. Mitral Valve * Normal mitral valve structure. * No mitral stenosis. * Trace mitral regurgitation. Tricuspid Valve * Normal tricuspid valve structure and function. * No tricuspid stenosis. * Trace tricuspid regurgitation. * Unable to estimate RVSP due to lack of TR jet. Pulmonic Valve * Pulmonic valve is not well visualized. * No pulmonic stenosis. * No pulmonic regurgitation. Aorta * Normally sized aortic root. Pericardium * The pericardium appears normal. IVC * The IVC is not well evaluated. Consult Discharge Plan - Plan Referrals: Janes Carpio MD [Primary Care Provider] -
[2018-01-10] MEDS: Cholecalciferol (D-3) 1,000 UNIT TABLET PO SCH (08:24)
[2018-01-10] MEDS: ALPRAZolam 0.5 MG TABLET PO SCH (08:25)
--- NOTE | 2018-01-10 10:55 | Discharge Summary ---
<Mickey Fisher - Last Filed: 01/10/18 11:10> - NOTES TO OUTPATIENT PROVIDER Notes to Outpatient Provider: Please follow up with PCP in the next 2-3 days. Will discharge home on Potassium Chloride 20mEq for 5 days. Perform repeat BMP at that time. Additionally, please evaluate patient for elevated blood p ressures while admitted, and follow up aldosterone and renin labs which were drawn here. Orders not resulted at time of discharge: Pending orders 01/09/18 06:31 ECG 12 lead ECG [ECG] Stat 01/09/18 10:19 Lyme Disease Total Antibody Stat 01/09/18 12:43 Renin, Activity Routine 01/10/18 08:57 Aldosterone, Blood Routine Date of Encounter: 01/10/18 Time of Encounter: 10:54 - Discharge Diagnosis (1) Hypokalemia Priority: Primary Status: Acute Assessment and Plan: Resolving K = 3.0 today Will D/C with KCl 20mEq QD for 5 more days. F/u with repeat BMP in 1 week (2) Proximal limb muscle weakness Priority: Secondary Status: Resolved (3) Elevated troponin Priority: Secondary Status: Acute Assessment and Plan: Likely secondary to hypokalemia (4) Polycythemia Priority: Secondary Status: Acute (5) Elevated blood pressure reading Priority: Secondary Status: Acute Assessment and Plan: Elevated BPs while inpatient PLease evaluate further F/U aldosterone and renin labs (6) Hypophosphatemia Priority: Secondary Status: Resolved Assessment and Plan: Resolved Hospital course: Mr. Rubin is a 37 y/o M with PMHx significant for anxiety and depression who presents with 2 days of generalized muscle weakness and fatigue. Notes he woke up yesterday morning and was unable to move his legs, feeling as if he was paralyzed. Denies headaches, vision changes, SOB, chest pain, palpitations, abdominal pain, nausea, vomiting, diarrhea, anxiety or panic attacks. Notes he recent saw PCP and was started on testosterone shots, and also received flu, hep A and hep B vaccines. Also notes visiting urgent care who started him on antibiotics to treat sinus infection. Otherwise denies any medical history. Denies fam hx of CVA, heart disease, hypertension. Denies similar episode occurring in the past. Works in law enforcement, and is physically active. In the ED, workup revealed polycythemia, hypokalemia, hypophosphatemia, mild troponin elevations, elevated ESR, CRP Hb/Hct: 17.6/48.8 ESR: 20 K = 2.4 Phos = <1.0 Trop = 0.06 --> 0.07 Labs were otherwise unremarkable. UA: Negative UTox: Negative EKG: NSR; No significant ST Changes; No prolonged intervals Echo: Impressions: LVEF 65%. Normal LV chamber size, wall thickness and function. Normal right ventricular structure and function. No significant valvular dysfunction. Unable to estimate RVSP due to lack of TR jet. Pt was given IV Potassium, and then Oral Potassium Chloride, after which he felt a significant improvement of symptoms. Additionally phosphate was replaced. Pt was admitted and monitored. Responded well to treatment. Remains to have elevated BPs. To be followed up outpatient. Plan to discharge home. Vital signs stable. Will discharge home with 20mEq KCl for 5 days. Re-check BMP after course. Additionally, follow up plasma renin and plasma aldosterone levels which were drawn inpatient. Discharge discussed with: patient - Time Spent with Patient Total time spent providing and/or coordinating discharge services: Less than 30 minutes - Discharge Medications Prescriptions: Potassium Chloride 20 meq PO DAILY 5 Days #5 tab.er.prt Home Medications: ALPRAZolam [Xanax 0.5 MG Tablet] 0.5 mg PO DAILY 01/09/18 [History] Cholecalciferol (Vitamin D3) [Vitamin D3] 4,000 unit PO DAILY 01/09/18 [History] Citalopram Hydrobromide [Citalopram HBr] 10 mg PO DAILY 01/09/18 [History] Testosterone Cypionate 200 mg IM SA 01/09/18 [History] Potassium Chloride 20 meq PO DAILY 5 Days #5 tab.er.prt 01/10/18 [Rx] Allergies/Adverse Reactions: Allergy/AdvReac Type Severity Reaction Status Date / Time tramadol AdvReac Agitated Verified 01/09/18 06:41 Date of admission: 01/09/18 14:58 Primary care physician: Janes Carpio MD Discharging clinician: Mickey Fisher Anticipated date of discharge: 01/10/18 - Constitutional Vitals: Temp Pulse Resp BP Pulse Ox 97.8 F 73 17 145/81 96 01/10/18 07:44 01/10/18 07:44 01/10/18 07:44 01/10/18 07:44 01/10/18 07:44 General appearance: Present: A&O X 3, pleasant, no acute distress Exam: GEN: AOx3, NAD; resting comfortably in bed HEENT: Atraumatic; normocephalic; eomi; mucous membranes moist CARDIO: RRR, no murmurs, rubs, gallops RESP: CTAB; no wheezes, rales, rhonchi ABD: Soft, non-tender, non-distended, bowel sounds present NEURO: CN 2-12 intact; no focal neurologic deficits; 5/5 strength UE/LE bilaterally EXT: No lower extremity edema b/l - Patient Status Disposition: Home, Self-Care Condition: Fair Overall status at discharge: patient is progressing back to baseline - Discharge Instructions Instructions: Potassium Chloride (By mouth), Hypokalemia (DC) Follow Up With: Janes Carpio MD [Primary Care Provider] - (Please call and make to follow up appointment with in 7-10 days of discharge date. ) Additional Instructions: Follow-up appointments: If there is not an appointment listed below, please call your physician and schedule a follow-up appointment. If you have congestive heart failure and your symptoms return, make an appointment with your physician. Medication List: Carry an up to date list of medications you are taking at all time. We have given you an updated medication list including any new medications that you have been prescribed. Please provide that list to your primary provider Symptoms: If your condition changes or you experience any of the following symptoms, notify your physician immediately: Unusual or worsening pain, fever, persistent nausea and vomiting, bleeding, increase in swelling (especially in your legs), sudden weight gain, extreme dizziness, chest pain, increased drainage or redness from a wound or incision. Go to the emergency department if you experience a problem with breathing. Weights: If you have a history of swelling or shortness of breath, weigh yourself daily and notify your physician if you have a weight gain of two or more pounds in one day or 5 or more pounds in a week. If you experience any of the warning signs for stroke: Sudden numbness or weakness of the face, arm or leg; especially on one side of the body, sudden confusion, trouble speaking or understanding, sudden trouble seeing in one or both eyes, sudden trouble walking, dizziness, loss of balance or coordination, sudden sever headache with no cause; Call 911 or go to the emergency room. Stroke is a medical emergency. Some risk factors for stroke: Age, cigarette smoking, diabetes, excessive alcohol consumption, family history, high blood pressure, overweight, physical inactivity, prior stroke, heart attack, diagnosis of carotid artery stenosis or other artery disease. If you smoke, STOP: Smoking or tobacco use significantly increases your risk of heart and lung disease. Your chance of disease greatly increases if you continue to smoke. For more information, call the [place] tobacco quit line for smoking cessation 5-003-HNHE-NOW ( ) - Diet and Activity Activity: increase activity as tolerated Diet: low fat, low cholesterol, low salt diet <Jos Christine - Last Filed: 01/10/18 13:16> Orders not resulted at time of discharge: Pending orders 01/09/18 06:31 ECG 12 lead ECG [ECG] Stat 01/09/18 10:19 Lyme Disease Total Antibody Stat 01/09/18 12:43 Renin, Activity Routine 01/10/18 08:57 Aldosterone, Blood Routine Date of Encounter: 01/10/18 Time of Encounter: 13:14 - Discharge Diagnosis (1) Proximal limb muscle weakness Status: Resolved (2) Elevated troponin Status: Acute (3) Hypokalemia Status: Acute (4) Polycythemia Status: Acute (5) Elevated blood pressure reading Status: Acute (6) Hypophosphatemia Status: Resolved Hospital course: Mr. Porras is a 37 year old male - Time Spent with Patient Total time spent providing and/or coordinating discharge services: Date of admission: 01/09/18 14:58 Primary care physician: Janes Carpio MD - Constitutional Vitals: Temp Pulse Resp BP Pulse Ox 97.8 F 73 17 145/81 96 01/10/18 07:44 01/10/18 07:44 01/10/18 07:44 01/10/18 07:44 01/10/18 07:44 General appearance: Present: cooperative, A&O X 3, answers questions appropriately - Respiratory Respiratory exam: Present: CTAB. Absent: accessory muscle use, rales, rhonchi, wheezes - Cardiovascular Cardiovascular exam: Present: RRR, +S1, +S2. Absent: diastolic murmur, gallop, rubs, systolic murmur - Extremities Exam Extremities exam: Present: warm, radial pulses palpable and symmetrical. Absent: calf tenderness, cyanotic, pedal edema - Attending Attestation I saw evaluated and examined this patient and my medical decision-making was reviewed with the Resident Physician, Mickey Fisher. I agree with the documented findings, disposition and treatment plan as described except to any changes set forth below. We independently had [id number] contact with the patient. Patient was hospitalized here after presenting to the ER with complaints of generalized weakness, fatigue. Patient was found to have severe electrolyte abnormalities including severe hypokalemia and hypophosphatemia. Patient had been taking testosterone injections per his primary care provider. He received IV potassium and also phosphorus supplements with improvement in his symptoms today. Patient feels back to baseline and is stable to be discharged home. He is advised to discuss about further management of his low testosterone level and may be decreasing the dose of his testosterone or following up with an shellac polisher. For now, patient will be discharged on oral potassium supplements and will have his lab work checked in 1 week. Addendum entered and electronically signed by Jos Christine MD 01/10/18 15:37: Total time spent providing and/or coordinating discharge services: 10 min
--- NOTE | 2018-01-12 07:30 | Electrocardiograph Report ---
[address] [place], [place] [address] Test Date: 2018-01-09 Pat Name: Gabe Porras Department: [id number] Room: 3B33 Gender: M [employer] Technician: : 1980 Requested By: Doris Hoyos Order Number: [id number] Reading MD: Kj Eduardo Measurements Intervals [place] Rate: 84 P: 56 IA: 170 QRS: 5 QRSD: 112 T: 185 QT: 380 QTc: 450 Interpretive Statements Sinus rhythm Left atrial enlargement Borderline intraventricular conduction delay Abnormal T, consider ischemia, lateral leads Electronically Signed On 01-12-2018 7:29:12 EST by Kj Eduardo
== END 2018-01-10 11:53 | disposition home or self-care (01) | DRG 642 ==
LOC: 3BNU 06:01 → EMEROOARM 06:01 → 3BNU 11:49 → SUATTDRO 14:58
PROVIDERS: ADMIT Internal Medicine; ATTEND Internal Medicine